=== PATIENT | female | born 1980 | race Caucasian/White ===

== ENCOUNTER 2022-12-15 22:33 | Emergency (ER) | payer OTHER ==
[~2022-12-15] VITALS: Ht 152.4 cm; Wt 70.0 kg
[2022-12-15 23:43] LABS: CHLORIDE 106 mEq/L (98-107)
[2022-12-15 23:50] LABS: BASOPHILS % 0.4 % (0.0-2.0); EOSINOPHILS % 0.5 % (0.0-5.0); HEMATOCRIT. 36.5 % (36.0-48.0); LYMPHOCYTES % 32.3 % (20.0-50.0); MEAN CORPUSCULAR HEMOGLOBIN 31.2 pg (28.0-32.0); MEAN CORPUSCULAR VOLUME 94.8 fL (81.0-99.0); MEAN PLATELET VOLUME 9.8 fl (7.4-10.4); MONOCYTES % 5.2 % (2.0-8.0); NEUTROPHILS % 61.6 % (40.0-76.0); RED BLOOD CELL COUNT 3.85 mill/uL (4.2-5.4); RED CELL DISTRIBUTION WIDTH 13.5 % (11.6-14.6)
[2022-12-16 00:06] LABS: B-HCG QUANTITATIVE 19266 mIU/mL (<3)
[2022-12-16 00:25] LABS: PLATELET 236 x1000/uL (130-400)
[2022-12-16 01:33] LABS: INR 0.9; PROTHROMBIN TIME 9.9 sec (9.6-11.0)
[2022-12-16 01:35] LABS: CLARITY URINE CLEAR (CLEAR); COLOR URINE YELLOW (YELLOW); KETONES URINE NEGATIVE (NEGATIVE); LEUKOCYTE ESTERASE URINE TRACE (NEGATIVE); NITRITE URINE NEGATIVE (NEGATIVE); OCCULT BLOOD URINE NEGATIVE (NEGATIVE); PROTEIN URINE NEGATIVE (NEGATIVE); SPECIFIC GRAVITY URINE 1.008 (1.005-1.030); UROBILINOGEN URINE 0.2 E.U./dL (0.2-1.0)
[2022-12-16 03:08] VITALS: BP 100/64
== END 2022-12-16 03:23 | disposition home or self-care (01) ==
LOC: ER 22:33
DX: O26.892 Other specified pregnancy related conditions, second trimester (principal); Q04.2 Holoprosencephaly; F03.90 Unspecified dementia, unspecified severity, without behavioral disturbance, psychotic disturbance, mood disturbance, and anxiety; Z3A.18 18 weeks gestation of pregnancy
CPT/HCPCS: 36415; 76805; 80053; 81003; 82962; 84702; 85025; 86850; 86900; 99284